=== PATIENT | female | born 1950 | race Caucasian/White ===

== ENCOUNTER 2021-10-28 09:31 | Outpatient (CLI) | payer MEDICARE, SELFPAY ==
[2021-10-28 13:59] LABS: Albumin* 4.2 g/dL (3.3-5.0); Chloride* 104 mmol/L (96-114)
[2021-10-28 14:00] LABS: Potassium* 4.3 mmol/L (3.6-5.1); Sodium* 140 mmol/L (135-149)
[2021-10-28 14:02] LABS: Blood Urea Nitrogen* 13 mg/dL (7-30); Carbon Dioxide* 31 mmol/L (20-32); Cholesterol* 232 mg/dL (90-199); Creatinine* 0.7 mg/dL (0.5-1.5); Estimated Glomerular Filt Rate 91.83
[2021-10-28 14:03] LABS: Alanine Aminotransferase* 20 U/L (4-35); Alkaline Phosphatase* 96 U/L (40-150); Aspartate Amino Transferase* 37 U/L (12-35); Bilirubin Direct* 0.3 mg/dL (0.0-0.5); Bilirubin Total* 0.7 mg/dL (0.1-1.5); Calcium* 9.3 mg/dL (8.4-10.6); Glucose* 96 mg/dL (60-115); HDL Cholesterol* 80 mg/dL (>=50); LDL Cholesterol Calculated 124 mg/dL (<100); Triglycerides* 139 mg/dL (40-149)
== END 2021-10-28 09:32 | disposition home or self-care (01) ==
PROVIDERS: Visit Provider Family Medicine
DX: Z00.00 Encounter for general adult medical examination without abnormal findings (principal); I10 Essential (primary) hypertension; E78.5 Hyperlipidemia, unspecified; M85.80 Other specified disorders of bone density and structure, unspecified site; J44.9 Chronic obstructive pulmonary disease, unspecified
CPT/HCPCS: 80048; 80061; 80076; 84443